=== PATIENT | male | born 1950 | race Caucasian/White ===

== ENCOUNTER → 2016-09-23 | Day surgery (SDC) | payer MEDICARE, OTHER ==
[~2016-09-23] MED LIST: 1-ME1LIQ PO; AMIT25; ASPI81CH3 PO; CALA120T PO; LACTATED RINGER'S 1,000 ML BAG IV ONE; LIPI20TA PO; LISI-587 PO; METO100 PO; NEUR600T PO; ONDA4TAB7 PO; PROPOFOL 200 MG/20 ML AMP IV ONE; TAMS0.4C4 PO/GT; ULOR80TA2 PO; ZOLP10TA3 PO
== END | disposition home or self-care (01) ==
LOC: ESDC 07:02
PROVIDERS: ATTEND Surgery
DX: R11.0 Nausea (principal)
CPT/HCPCS: 00740; 43239; 88305; 88312; J3010; J7120

== ENCOUNTER 2017-03-08 14:58 | Inpatient (IN) | payer MEDICARE, OTHER ==
[~2017-03-08] VITALS: Ht 157.5 cm; Wt 146.0 kg
[~2017-03-08 14:58] MED LIST changes: -1-ME1LIQ PO; +AMBI10TA PO; -AMIT25; +AMIT25TA9 PO; -ASPI81CH3 PO; +ATOR20TA15 PO; -CALA120T PO; +GABA600T PO; -LACTATED RINGER'S 1,000 ML BAG IV ONE; -LIPI20TA PO; -LISI-587 PO; +LISI20TA3 PO; -METO100 PO; +METO100T PO; -NEUR600T PO; -ONDA4TAB7 PO; -PROPOFOL 200 MG/20 ML AMP IV ONE; +TAMS0.4C4 PO; -TAMS0.4C4 PO/GT; +VERA120T3 PO; +ZOFR4TAB PO; -ZOLP10TA3 PO
[2017-03-09] MEDS ORDERED: LACTATED RINGER'S 1000 ML IV PRN (06:15)
[2017-03-09] MEDS ORDERED: APREPITANT 40 MG CAP PO SCH (06:15)
[2017-03-09] MEDS ORDERED: SODIUM CHLORID 0.9% 500 ML IV PRN (06:15)
[2017-03-09] MEDS ORDERED: INSULIN HUMAN REGULAR 1,000 UNITS/10 ML VIAL SQ PRN (06:15)
[2017-03-09] MEDS ORDERED: METOPROLOL TARTRATE 25 MG TAB PO PRN (06:15)
[2017-03-09] MEDS ORDERED: CHLORHEXIDINE GLUCONATE 2 % 1 PACK (2 CLOTHS) TOPICAL PRN (06:15)
[2017-03-09] MEDS ORDERED: ONDANSETRON HCL 4 MG/2 ML VIAL IV PUSH SCH (06:15)
[2017-03-09] MEDS ORDERED: POVIDONE IODINE 5% (ANTISEPSIS KIT) 4 APPLICATIONS EACH NARE PRN (06:15)
[2017-03-09] MEDS ORDERED: SCOPOLAMINE 1.5 MG PATCH T-DERMAL SCH (06:15)
[2017-03-09] MEDS ORDERED: ceFAZolin 2 GM PREMIX 50 ML IV SCH (06:15)
[2017-03-09] MEDS ORDERED: metroNIDAZOLE 500 MG INJ 100 ML IV SCH (06:15)
[2017-03-09] MEDS ORDERED: ACETAMINOPHEN 1000 MG/100 ML VIAL IV SCH (06:15)
[2017-03-09 06:29] VITALS: BP_SYST 143; BP_SYST 173; BP_DIAS 69; BP_DIAS 73; PULSE 63; RESP 20; TEMP 97.9; O2SAT 96
[2017-03-09] MEDS ORDERED: LISI20TA3 PO (07:03)
[2017-03-09] MEDS ORDERED: MS C30TA5 PO (07:03)
[2017-03-09] MEDS ORDERED: HYDR-3798 (07:03)
[2017-03-09] MEDS ORDERED: ULOR80TA2 (07:03)
[2017-03-09] MEDS ORDERED: AMLO10TA2 PO (07:03)
[2017-03-09] MEDS ORDERED: DULO1CAP2 PO (07:03)
[2017-03-09] MEDS ORDERED: VITA100036 PO (07:03)
[2017-03-09] MEDS ORDERED: FAMOTIDINE 20 MG/2 ML VIAL ONE (07:10)
[2017-03-09] MEDS ORDERED: MIDAZOLAM HCL 2 MG/2 ML VIAL ONE (07:10)
[2017-03-09] MEDS ORDERED: VASOPRESSIN INJ 20 UNITS/ML VIAL ONE (07:52)
[2017-03-09] MEDS ORDERED: BUPIVACAINE/EPINEPHRINE 0.5% PF 10 ML VIAL INFIL ONE (07:59)
[2017-03-09] MEDS ORDERED: METHYLENE BLUE 10 MG/ML VIAL NG ONE (08:12)
--- NOTE | 2017-03-09 10:41 | HHI.PR ---
Immediate Post Op Note Procedure Date: Mar 09, 2017 Pre Op Diagnosis: morbid obesity bmi 62, HTN, hypercholestremia, JONATHAN, RA Post Op Diagnosis: same Surgeon: Ridge Cantrell MD Seafood Packer(s): Dr. Diego Procedure: lap RYGB Findings: no leak on methylene blue test Complications: none Specimen(s) removed: none Estimated blood loss: 25cc Anesthesia: General Drains: None IVF (1700) Patient to: PACU Patient Condition: Good Ridge Cantrell MD Mar 09, 2017 10:41
[2017-03-09] MEDS ORDERED: ENOXAPARIN SODIUM 40 MG/0.4 ML SYRINGE SQ SCH (10:45)
[2017-03-09] MEDS ORDERED: Post-op Orders (for Pharmacy) MISC OTHER ONE (10:45)
[2017-03-09] MEDS ORDERED: ONDANSETRON HCL 4 MG/2 ML VIAL IV PRN (10:45)
[2017-03-09] MEDS ORDERED: diphenhydrAMINE HCL ELIXIR 12.5 MG/5 ML CUP PO PRN (10:45)
[2017-03-09] MEDS ORDERED: ACETAMINOPHEN 325MG/HYDROcodone 7.5MG/15ML UDC PO PRN (10:45)
[2017-03-09] MEDS ORDERED: HYDROmorphone HCL 2 MG TAB PO PRN (10:45)
[2017-03-09] MEDS ORDERED: diphenhydrAMINE HCL 50 MG/ML VIAL IV PRN (10:45)
[2017-03-09] MEDS ORDERED: ENALAPRILAT 1.25 MG/ML VIAL IV PUSH PRN (10:45)
[2017-03-09] MEDS ORDERED: SODIUM CHLORIDE 0.9% FLUSH 10 ML FLUSH IV FLUSH PRN (10:45)
[2017-03-09] MEDS ORDERED: DO NOT ADM ANY ANTICOAGULANT DRUGS PRN (10:55)
[2017-03-09] MEDS ORDERED: fentaNYL CITRATE 250 MCG/5 ML AMP ONE (10:59)
[2017-03-09] MEDS ORDERED: *HYDROmorphone PF 1 MG VIAL PERIprocedural Use ONLY ONE ×2 (11:07→11:27)
[2017-03-09] MEDS ORDERED: ePHEDrine/NS 25 MG/5 ML SYR IV ONE (11:17)
[2017-03-09] MEDS ORDERED: PROPOFOL 200 MG/20 ML AMP IV ONE (11:17)
[2017-03-09] MEDS ORDERED: PHENYLEPH/NS 1000 MCG/10 ML SYR IV ONE (11:18)
[2017-03-09] MEDS ORDERED: LACTATED RINGER'S 1000 ML INJ 1,000 ML IV ONE (11:18)
[2017-03-09] MEDS ORDERED: ONDANSETRON HCL 4 MG/2 ML VIAL IV PUSH ONE (11:18)
[2017-03-09] MEDS ORDERED: NEOSTIGMINE 3 MG/3 ML SYR IV ONE (11:18)
[2017-03-09] MEDS: D5-1/2 NS + KCL 20 MEQ INJ 1,000 ML IV SCH ×2 (11:30→20:49)
[2017-03-09] MEDS: PANTOPRAZOLE SOD 40 MG DELAYED RELEASE TAB PO SCH (12:00)
[2017-03-09] MEDS: METOCLOPRAMIDE HCL 10 MG/2 ML VIAL IV PUSH SCH ×2 (12:10→15:26)
[2017-03-09] MEDS: RESP: ALBUTEROL 2.5 MG/3 ML NEB (SCH) INH (12:10)
[2017-03-09] MEDS ORDERED: NALOXONE HCL 0.4 MG/ML AMP IV PRN (12:30)
[2017-03-09 14:00] VITALS: BP 128/60; PULSE 77; RESP 20; TEMP 96.2; O2SAT 92
[2017-03-09] MEDS: PCA - TOTAL MG DILAUDID DELIVERED PER SHIFT SCH ×2 (14:00→22:00)
[2017-03-09] MEDS: ENOXAPARIN SODIUM 40 MG/0.4 ML SYRINGE SQ SCH (15:26)
[2017-03-09] MEDS: metroNIDAZOLE 500 MG INJ 100 ML IV SCH ×2 (15:28→22:34)
[2017-03-09] MEDS: HYDROmorphone HCL PCA 6 MG/30 ML IV SCH (15:35)
[2017-03-09 16:00] VITALS: BP 169/75; PULSE 82; RESP 22; TEMP 96.5; O2SAT 94
[2017-03-09 20:11] VITALS: BP 153/70; PULSE 81; RESP 16; TEMP 97.3; O2SAT 92
[2017-03-09 20:45] VITALS: RESP 20
[2017-03-09] MEDS: SODIUM CHLORIDE 0.9% FLUSH 10 ML FLUSH IV FLUSH SCH (21:00)
[2017-03-10] VITALS (8 sets, daily range): BP systolic 145–183; BP diastolic 65–84; PULSE 74–94; RESP 18–21; TEMP 97.1–99.6; O2SAT 92–98
[2017-03-10] MEDS: METOCLOPRAMIDE HCL 10 MG/2 ML VIAL IV PUSH SCH ×2 (00:14→05:56)
[2017-03-10] MEDS: RESP: ALBUTEROL 2.5 MG/3 ML NEB (SCH) INH ×6 (00:33→21:24)
[2017-03-10] MEDS: D5-1/2 NS + KCL 20 MEQ INJ 1,000 ML IV SCH ×3 (03:37→20:00)
[2017-03-10] MEDS: metroNIDAZOLE 500 MG INJ 100 ML IV SCH (05:56)
[2017-03-10] MEDS: PCA - TOTAL MG DILAUDID DELIVERED PER SHIFT SCH (06:00)
[2017-03-10] MEDS: HYDROmorphone HCL PCA 6 MG/30 ML IV SCH (06:52)
[2017-03-10 08:17] LABS: AUTOMATED NEUTROPHIL # 7.6 TH/MM3 (1.8-7.7); BASOPHIL % 0.5 % (0.0-2.0); EOSINOPHIL % 0.3 % (0.0-4.0); HEMATOCRIT 40.2 % (39.0-51.0); HEMO FLAGS DIFF FINAL; LYMPH % 8.8 % (9.0-44.0); LYMPHOCYTE # 0.8 TH/MM3 (1.0-4.8); MEAN CELL VOLUME 87.3 FL (80.0-100.0); MEAN CORPUSCULAR HEMOGLOBIN 28.7 PG (27.0-34.0); MEAN CORPUSCULAR HGB CONC 32.9 % (32.0-36.0); MONO % 7.7 % (0.0-8.0); NEUT % 82.7 % (16.0-70.0); PLATELET COUNT 173 TH/MM3 (150-450); RED CELL DISTRIBUTION WIDTH 14.2 % (11.6-17.2); WHITE BLOOD COUNT 9.2 TH/MM3 (4.0-11.0)
[2017-03-10 08:45] LABS: BICARBONATE 31.1 MEQ/L (21.0-32.0); POTASSIUM 3.9 MEQ/L (3.5-5.1)
[2017-03-10] MEDS: SODIUM CHLORIDE 0.9% FLUSH 10 ML FLUSH IV FLUSH SCH ×2 (09:00→21:00)
[2017-03-10] MEDS: PANTOPRAZOLE SOD 40 MG DELAYED RELEASE TAB PO SCH (09:36)
[2017-03-10] MEDS ORDERED: METOCLOPRAMIDE HCL 10 MG/2 ML VIAL IV PUSH PRN (10:45)
[2017-03-10] MEDS ORDERED: fentaNYL 75 MCG/HR PATCH T-DERMAL SCH (12:00)
--- NOTE | 2017-03-10 12:28 | HHI.PR ---
Subjective Subjective Notes 66yo male POD#1 RNY. 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 Also has complaints of throat discomfort and occasional shortness of breath. Tolerating PO fluids. Objective Vitals/I&O Vital Signs Date Time Temp Pulse Resp B/P Pulse Ox O2 Delivery O2 Flow Rate FiO2 03/10/17 08:00 97.6 83 20 145/65 93 03/10/17 07:59 Nasal Cannula 3.00 Labs Laboratory Tests Test 03/10/17 07:05 White Blood Count 9.2 Red Blood Count 4.60 Hemoglobin 13.2 Hematocrit 40.2 Mean Corpuscular Volume 87.3 Mean Corpuscular Hemoglobin 28.7 Mean Corpuscular Hemoglobin 32.9 Concent Red Cell Distribution Width 14.2 Platelet Count 173 Mean Platelet Volume 7.4 Neutrophils (%) (Auto) 82.7 Lymphocytes (%) (Auto) 8.8 Monocytes (%) (Auto) 7.7 Eosinophils (%) (Auto) 0.3 Basophils (%) (Auto) 0.5 Neutrophils # (Auto) 7.6 Lymphocytes # (Auto) 0.8 Monocytes # (Auto) 0.7 Eosinophils # (Auto) 0.0 Basophils # (Auto) 0.0 CBC Comment DIFF FINAL Differential Comment Sodium Level 141 Potassium Level 3.9 Chloride Level 103 Carbon Dioxide Level 31.1 Anion Gap 7 Blood Urea Nitrogen 13 Creatinine 0.89 Estimat Glomerular Filtration 85 Rate Random Glucose 99 Calcium Level 7.9 Magnesium Level 2.0 Cardiovascular: Regular Lungs: Wheezes Abdomen: Post-op tenderness Extremities: Perfused Wound Wound : Wound Location: Abdomen Appearance: Clean & Dry A/P Assessment and Plan D/C WORLD LANGUAGE TEACHER and try Fentanyl patch with oral pain meds for breakthrough pain. Pt does take a significant amount of pain medications at home. D/C rehman PT for eval and treat, assist with OOB to chair and transfer Continue to increase fluids as tolerated Nebs Q4 hours and EZ pap, Encourage frequent ambulation and use of IS Discharge Planning D/C home possibly tomorrow depending on hospital course Attending Statement as above pt seen at bedside took 3900 cc po fluids discussed with pt going slow and not drinking fast pt has no nausea, doing well PT for assistance pt is a resident of [facility]- will work to return pt, likely tomorrow Attestation The exam, history, and the medical decision-making described in the above note were completed with the assistance of the mid-level provider. I reviewed and agree with the findings presented. I attest that I had a [id number] encounter with the patient on the same day, and personally performed and documented my assessment and findings in the medical record. Mirian Albarran Mar 10, 2017 12:28 Ridge Cantrell MD Mar 15, 2017 11:03
[2017-03-10] MEDS ORDERED: BENZOCAINE-MENTHOL (SUGAR FREE) 15 MG-3.6 MG LOZENGE BUCCAL ONE (12:45)
[2017-03-10] MEDS: ENOXAPARIN SODIUM 40 MG/0.4 ML SYRINGE SQ SCH (13:48)
[2017-03-10] MEDS: ACETAMINOPHEN 325MG/HYDROcodone 7.5MG/15ML UDC PO PRN (15:35)
[2017-03-10] MEDS ORDERED: ZOLPIDEM TARTRATE 10 MG TAB PO PRN (19:30)
[2017-03-11] VITALS: BP 172/79; PULSE 91; RESP 20; TEMP 97.9; O2SAT 93
[2017-03-11 04:00] VITALS: BP 181/86; PULSE 110; RESP 20; TEMP 98.7; O2SAT 94
[2017-03-11] MEDS: RESP: ALBUTEROL 2.5 MG/3 ML NEB (SCH) INH ×3 (04:00→09:35)
[2017-03-11] MEDS: D5-1/2 NS + KCL 20 MEQ INJ 1,000 ML IV SCH ×3 (04:00→20:00)
[2017-03-11] MEDS ORDERED: VERAPAMIL HCL 120 MG TAB PO PRN (07:45)
[2017-03-11] MEDS: SODIUM CHLORIDE 0.9% FLUSH 10 ML FLUSH IV FLUSH SCH ×2 (09:00→21:16)
[2017-03-11 09:35] VITALS: O2SAT 93
[2017-03-11] MEDS: PANTOPRAZOLE SOD 40 MG DELAYED RELEASE TAB PO SCH (09:49)
[2017-03-11] MEDS: LISINOPRIL 20 MG TAB PO SCH (09:50)
[2017-03-11] MEDS: METOPROLOL TARTRATE 100 MG TAB PO SCH (09:50)
--- NOTE | 2017-03-11 12:17 | HHI.PR ---
Subjective Subjective Notes POD#2 RNY. Laying in bed, has not had PT work with him yet. Tolerating Po fluids , needs to be reminded to slow down. Pain controlled. No GI complaints, passing flatus. Shortness of breath better Objective Vitals/I&O Vital Signs Date Time Temp Pulse Resp B/P Pulse Ox O2 Delivery O2 Flow Rate FiO2 03/11/17 09:35 93 Nasal Cannula 2.00 03/11/17 04:00 98.7 110 20 181/86 Cardiovascular: Regular Lungs: Clear Abdomen: Post-op tenderness Extremities: Perfused Wound Wound : Wound Location: Abdomen Appearance: Clean & Dry A/P Assessment and Plan Ensure pt is OOB today Continue with slow PO intake Continue with use of IS Discharge Planning D/C home possibly today Attending Statement as above pt seen at bedside encourage reduced po, but needs adequate hydration d/c planning Attestation The exam, history, and the medical decision-making described in the above note were completed with the assistance of the mid-level provider. I reviewed and agree with the findings presented. I attest that I had a [id number] encounter with the patient on the same day, and personally performed and documented my assessment and findings in the medical record. Mirian Albarran Mar 11, 2017 12:17 Ridge Cantrell MD Mar 15, 2017 11:19
[2017-03-11] MEDS ORDERED: LISI-515 PO (15:24)
[2017-03-11] MEDS: ENOXAPARIN SODIUM 40 MG/0.4 ML SYRINGE SQ SCH (15:32)
[2017-03-11 15:59] VITALS: O2SAT 93
[2017-03-11] MEDS: ACETAMINOPHEN 325MG/HYDROcodone 7.5MG/15ML UDC PO PRN (18:28)
[2017-03-11 20:00] VITALS: BP 123/55; PULSE 114; RESP 22; TEMP 98; O2SAT 93
[2017-03-12] VITALS: BP 166/73; PULSE 91; RESP 22; TEMP 96.8; O2SAT 98
[2017-03-12] MEDS: D5-1/2 NS + KCL 20 MEQ INJ 1,000 ML IV SCH ×2 (04:00→12:00)
[2017-03-12 07:35] VITALS: O2SAT 94
[2017-03-12 08:00] VITALS: BP 149/68; PULSE 73; RESP 18; TEMP 97.8; O2SAT 94
[2017-03-12] MEDS: SODIUM CHLORIDE 0.9% FLUSH 10 ML FLUSH IV FLUSH SCH (09:00)
[2017-03-12] MEDS: METOPROLOL TARTRATE 100 MG TAB PO SCH (09:12)
[2017-03-12] MEDS: PANTOPRAZOLE SOD 40 MG DELAYED RELEASE TAB PO SCH (09:12)
[2017-03-12] MEDS: LISINOPRIL 20 MG TAB PO SCH (09:12)
--- NOTE | 2017-03-12 10:58 | MP ---
cc: CODY CANTRELL MD DATE OF SURGERY: 03/09/2017 PREOPERATIVE DIAGNOSIS: 1. Morbid obesity, BMI 62 2. Hypertension 3. Hypercholesteremia rheumatoid arthritis so obstructive sleep apnea. POSTOPERATIVE DIAGNOSIS 1. Morbid obesity, BMI 62 2. Hypertension 3. Hypercholesteremia rheumatoid arthritis so obstructive sleep apnea. PROCEDURE PERFORMED Laparoscopic Daniele-en-Y gastric bypass. SURGEON Dr. Cody Cantrell STRUCTURAL WORKER: Dr. Dylan Diego needed due to the complex laparoscopic procedure and Dr. Diego assisted with the camera control and retraction. ANESTHESIA GETA. IV FLUIDS 1700 cc ESTIMATED BLOOD LOSS: 15 cc COMPLICATIONS None. WOUND CLASSICATION: Wound classification clean, contaminated. DRAINS: None FINDINGS No leak on Methylene blue INDICATION The patient is a 66-year-old male who presented with multiple attempts at weight loss without success. The patient with morbid obesity and multiple comorbidities include hypertension, hypercholesteremia, rheumatoid arthritis and obstructive sleep apnea. Decision was made for operative intervention. Discussed with the patient in detail for laparoscopic gastric bypass. DETAILS OF PROCEDURE: The patient was taken to the surgical suite, placed in supine position. He was prepped and draped in usual sterile fashion after induction of general trache anesthesia. Brief time-out done stating correct patient, procedure surgical site, we were all in agreement for this. Attention directed to the superior umbilicus. A 0.18 cm distal to the xyphoid midline was injected local anesthetic. Incision made for five OptiVu port done under direct visualization. The port into the Abdomen, the abdomen was insufflated to 50 mm pneumoperitoneum. Several other ports placed under direct vision 5 mm right upper quadrant liver retractor followed by a 12 mm right lower quadrant port. A 5 mm left upper quadrant port and 5 mm left lower quadrant port were all placed. Next attention directed to the omentum. The omentum was lifted cephalad and split from hepatic flexure to transverse and then up splitting omentum in half with Harmonic scalpel. This was done to create a path for the Roulen. Next the ligament Treitz was identified and the bowel walked 40 cm distally the small bowel was divided with an Endo-THANG stapler with seam guard. Next the clip was placed in the distal segment was brought a distance of a generous 100 cm, enterotomies were created in this area to create the jejunojejunostomy and the biliopancreatic limb and Roulen in side to side stapled anastomosis. The silk suture used and tacked to approximate the excess tissue and facilitate flow through the jejunojejunostomy. Clips placed at the staple line to obtain hemostasis. Once we were finished with that and the patient had been placed in reverse Trendelenburg and air planed to the right, a Sujatha flex retractor was placed to retract the left lobe of the liver. The angle of his was taken down with harmonic scalpel bluntly. The GE junction was identified in the lesser curvature above the nerve of bladder CA point distally to the GE junction to create her gastric pouch, it was identified. A window was made posteriorly into the lesser sac bluntly. The stomach was then transected horizontally using Endo-THANG blue load stapler. Several additional firings were done directed toward the angle of his, to complete the pouch. Prior to this confirmation of removal of any NG tube sure an esophageal probes were done and there were noted. Next the gastrotomy was created and pouch enterotomy was also created in the Daniele limb and a gastrojejunostomy was stapled to 1/2 cm. 2-0 Polysorb was used to reinforce approximate and close enterotomy making Faroese OG tube was placed across the anastomosis continue 06/29 of the 2-0 Polysorb's and tied to create a single initial layer. This was decibel nine point we would out evidence of leaking. A second layer was run to create a double layer and stones gastrojejunostomy. Next the seal was of placed over the gastrojejunostomy, jejunojejunostomy and staple lines. Hemostasis was identified. Next the defect in the intraoral potential hernias were closed using a nonabsorbable 2-0 suture. Following this pneumoperitoneum was removed all. The ports were removed under direct visualization. The to right lower left lower quadrant ports were closed with 0 Vicryl suture and a suture passer. Local injected at all port sites dimpled pneumoperitoneum ports removed. Subcuticular sutures including 4-0 Monocryl was done to all port sites. Sterile dressings then placed. The patient tolerated procedure well. There is no intraoperative complication. The patient was extubated, taken to the PACU. MD LILIA Huang/zafar /5:59 PM /10:24 AM
[2017-03-12] MEDS ORDERED: MS C30TA5 PO (11:04)
[2017-03-12] MEDS ORDERED: AMBI10TA PO (11:05)
[2017-03-12 12:00] VITALS: BP 144/69; PULSE 82; RESP 17; TEMP 96.6; O2SAT 95
[2017-03-13] MEDS ORDERED: REMOVE OLD DURAGESIC (FENTANYL) PATCH T-DERMAL SCH (12:00)
--- NOTE | 2017-03-15 10:02 | HHI.DS ---
Discharge Summary Admission Date Mar 09, 2017 at 05:27 Discharge Date: Mar 12, 2017 Admitting Diagnosis Morbid Obesity Procedures Laparscopic Daniele-en-Y Brief History 66yo male with morbid obesity and multiple comorbidities presented for elective gastric bypass PE at Discharge Cardiac: RRR Lungs: clear to auscultation Abdomen: mild post-op tenderness, denies any other GI complaints Extremities: perfused Hospital Course The procedure was performed without complication and was sent back to [facility] where he resides Pt Condition on Discharge: Stable Discharge Disposition: Discharge to SNF Discharge Instructions DIET: Follow Instructions for: Bariatric Surgery Diet Activities you can perform: Shower Only-No Bath Activities to Avoid: Strenuous Activity New Medications: Lisinopril (Lisinopril) 20 Mg Tab 20 MG PO DAILY Blood Pressure Management #30 Ref 3 TAB Continued Medications: Amlodipine (Amlodipine) 10 Mg Tab 10 MG PO DAILY Blood Pressure Management #30 Ref 0 TAB Atorvastatin (Atorvastatin) 20 Mg Tab 20 MG PO HS Cholesterol Management #30 Ref 0 TAB Cholecalciferol (Vitamin D3) 1,000 Unit Cap 1000 UNITS PO DAILY Nutritional Supplement #1 Ref [address] (Duloxetine DR) 30 Mg Capdr 30 MG PO DAILY #30 Ref 0 CAP Febuxostat (Uloric) 80 Mg Tab 80 MG PO DAILY Gabapentin (Gabapentin) 600 Mg Tab 600 MG PO TID #90 Ref 0 TAB Hydralazine HCl (Hydralazine HCl) 10 Mg Tablet Q8HR Metoprolol Tartrate (Metoprolol Tartrate) 100 Mg Tab 100 MG PO DAILY #30 Ref 0 TAB Morphine Sulfate (Ms Contin) 30 Mg Tablet.er 30 MG PO DAILY Pain Management Days 30 Ref 0 CAPLET (This prescription has been renewed) Ondansetron (Zofran) 4 Mg Tab 4 MG PO Q6HR PRN NAUSEA OR VOMITING Ref 0 TAB Tamsulosin (Tamsulosin) 0.4 Mg Cap 0.4 MG PO HS Manage Prostate Problems #30 Ref 0 CAP Verapamil (Verapamil) 120 Mg Tab 120 MG PO Q8H PRN ELEVATED B/P #90 Ref 0 TAB Zolpidem (Ambien) 10 Mg Tab 10 MG PO HS PRN INSOMNIA Days 30 Ref 0 TAB (This prescription has been renewed) Discontinued Medications: Febuxostat (Uloric) 80 Mg Tab 80 TAB DAILY Lisinopril-Hctz (Lisinopril-Hctz) 20-25 Mg Tab 1 TAB PO DAILY Blood Pressure Management #30 Ref 0 TAB Lisinopril-Hctz (Lisinopril-Hctz) 20-25 Mg Tab 1 TAB PO DAILY Blood Pressure Management #30 Ref 0 TAB Mirian Albarran Mar 15, 2017 10:02
== END 2017-03-12 12:42 | DRG 621 ==
LOC: HSDI 03-09 05:27 → N07B 03-09 13:37
PROVIDERS: ADMIT Surgery; ATTEND Surgery
PROC: 0D164ZA Bypass Stomach to Jejunum, Percutaneous Endoscopic Approach (ICD-10-PCS; principal; 2017-03-09 07:20)
DX: Z68.44 Body mass index [BMI] 60.0-69.9, adult (principal); E66.01 Morbid (severe) obesity due to excess calories; I10 Essential (primary) hypertension; M06.9 Rheumatoid arthritis, unspecified; G47.33 Obstructive sleep apnea (adult) (pediatric); E78.00 Pure hypercholesterolemia, unspecified
CPT/HCPCS: 80048; 83735; 85025; 94150; 94640; 94664; J0131; J0690; J1170; J1650; J2250; J2370; J2405; J2710; J2765; J3010; J3480; J7120; J7613; J8501

== ENCOUNTER 2017-03-30 05:08 | Observation (INO) | payer MEDICARE, OTHER ==
[~2017-03-30] VITALS: Ht 157.5 cm; Wt 134.0 kg
[2017-03-30] VITALS (9 sets, daily range): BP systolic 104–152; BP diastolic 51–89; PULSE 84–117; RESP 16–20; TEMP 96.8–99.6; O2SAT 9–98
[~2017-03-30 05:08] MED LIST changes: -AMIT25TA9 PO; +AMLO10TA2 PO; +DULO1CAP2 PO; +HYDR-3798; +LISI-515 PO; -LISI20TA3 PO; +MS C30TA5 PO; +VITA100036 PO
--- NOTE | 2017-03-30 05:20 | PD ---
HPI Chief Complaint: Abdominal Pain Time Seen by Provider: 05:12 Travel History International Travel<30 days: No Contact w/Intl Traveler<30days: No Traveled to known affect area: No History of Present Illness HPI 66-year-old male with laparoscopic Daniele-en-Y on 03/09/[address] Cantrell, brought in by ambulance from home for evaluation of epigastric abdominal pain and chest pain. Patient reports that the pain has been going on for 3 hours and has been progressively getting worse. He is unable to describe the pain, stating that it is just a pain. He reports that the pain is associated with nausea. He has not vomited. There are no modifying factors. He denies any known history of coronary artery disease. PFSH Past Medical History Hx Anticoagulant Therapy: Yes Arthritis: Yes Asthma: No Heart Rhythm Problems: No Cancer: Yes (MALIGNANT MELANOMA) Cardiovascular Problems: Yes (HTN, CHF) High Cholesterol: Yes Chest Pain: No Congestive Heart Failure: Yes COPD: No Cerebrovascular Accident: No Diminished Hearing: No Endocrine: No Genitourinary: Yes Hypertension: Yes Immune Disorder: No Kidney Stones: No Musculoskeletal: Yes Neurologic: Yes Psychiatric: Yes (depression) Reproductive: No Respiratory: Yes (sleep apnea) Migraines: No Renal Failure: Yes (STAGE TWO) Seizures: No Sleep Apnea: Yes Past Surgical History Abdominal Surgery: No Cardiac Surgery: No Ear Surgery: No Endocrine Surgery: Yes (tonsilectomy) Eye Surgery: No Genitourinary Surgery: No Gynecologic Surgery: No Oral Surgery: No Pacemaker: No Thoracic Surgery: No Tonsillectomy: Yes Other Surgery: Yes (rt arm melanoma) Social History Alcohol Use: No Tobacco Use: Yes Substance Use: No Allergies-Medications (Allergen,Severity, Reaction): Coded Allergies: No Known Allergies (Unverified , 03/30/17) Reported Meds & Prescriptions Reported Meds & Active Scripts Active Ambien (Zolpidem Tartrate) 10 Mg Tab 10 Mg PO HS PRN 30 Days Ms Contin (Morphine Sulfate) 30 Mg Tablet.er 30 Mg PO DAILY 30 Days Lisinopril 20 Mg Tab 20 Mg PO DAILY Reported Hydralazine HCl 10 Mg Tablet Q8HR Duloxetine DR (Duloxetine HCl) 30 Mg Capdr 30 Mg PO DAILY Vitamin D3 (Cholecalciferol) 1,000 Unit Cap 1,000 Units PO DAILY Amlodipine (Amlodipine Besylate) 10 Mg Tab 10 Mg PO DAILY Uloric (Febuxostat) 80 Mg Tab 80 Mg PO DAILY Gabapentin 600 Mg Tab 600 Mg PO TID Metoprolol Tartrate 100 Mg Tab 100 Mg PO DAILY Zofran (Ondansetron HCl) 4 Mg Tab 4 Mg PO Q6HR PRN Tamsulosin (Tamsulosin HCl) 0.4 Mg Cap 0.4 Mg PO HS Review of Systems Except as stated in HPI: all other systems reviewed are Neg Physical Exam Narrative GENERAL: Well-developed, well-nourished, morbidly obese, no apparent distress. SKIN: Focused skin assessment warm/dry. No rash. No pallor. No diaphoresis. HEAD: Atraumatic. Normocephalic. EYES: Pupils equal and round. No scleral icterus. No injection or drainage. ENT: Mucous membranes pink and moist. NECK: Trachea midline. No JVD. CARDIOVASCULAR: Regular rate and rhythm. No murmur appreciated. RESPIRATORY: No accessory muscle use. Clear to auscultation. Breath sounds equal bilaterally. GASTROINTESTINAL: Abdomen round, soft, nondistended. Mild epigastric tenderness without peritoneal signs. Rest of abdomen is soft and nontender. Normal bowel sounds. Incisions from laparoscopic procedure healing well without warmth, erythema, purulence, or induration. MUSCULOSKELETAL: No obvious deformities. No clubbing. No cyanosis. No edema. NEUROLOGICAL: Awake and alert. No obvious cranial nerve deficits. Motor grossly within normal limits. Normal speech. PSYCHIATRIC: Appropriate mood and affect; insight and judgment normal. Data Data Last Documented VS Vital Signs Date Time Temp Pulse Resp B/P Pulse Ox O2 Delivery O2 Flow Rate FiO2 03/30/17 06:37 94 20 122/60 98 Nasal Cannula 3 03/30/17 05:19 96.8 Orders Electrocardiogram (03/30/17 05:20) Ckmb (Isoenzyme) Profile (03/30/17 05:20) Complete Blood Count With Diff (03/30/17 05:20) Comprehensive Metabolic Panel (03/30/17 05:20) Magnesium (Mg) (03/30/17 05:20) Prothrombin Time / Inr (Pt) (03/30/17 05:20) Act Partial Throm Time (Ptt) (03/30/17 05:20) Troponin I (03/30/17 05:20) Lipase (03/30/17 05:20) Chest, Single Ap (03/30/17 05:20) Ecg Monitoring (03/30/17 05:20) Iv Access Insert/Monitor (03/30/17 05:20) Oximetry (03/30/17 05:20) Sodium Chloride 0.9% Flush (Ns Flush) (03/30/17 05:30) Ct Abd/Pel W Iv Contrast(Rout) (03/30/17 05:20) Hydromorphone Pf Inj (Dilaudid Pf Inj) (03/30/17 05:30) Ondansetron Inj (Zofran Inj) (03/30/17 05:30) Iohexol 350 Inj (Omnipaque 350 Inj) (03/30/17 06:39) Piperacil-Tazo 4.5 Gm Premix (Zosyn 4.5 (03/30/17 07:15) Us Abdomen Gallbladder (03/30/17 ) Labs Laboratory Tests Test 03/30/17 05:15 White Blood Count 8.5 TH/MM3 Red Blood Count 4.48 MIL/MM3 Hemoglobin 12.9 GM/DL Hematocrit 38.0 % Mean Corpuscular Volume 84.9 FL Mean Corpuscular Hemoglobin 28.9 PG Mean Corpuscular Hemoglobin 34.1 % Concent Red Cell Distribution Width 13.7 % Platelet Count 228 TH/MM3 Mean Platelet Volume 8.4 FL Neutrophils (%) (Auto) 80.3 % Lymphocytes (%) (Auto) 10.4 % Monocytes (%) (Auto) 7.1 % Eosinophils (%) (Auto) 1.3 % Basophils (%) (Auto) 0.9 % Neutrophils # (Auto) 6.8 TH/MM3 Lymphocytes # (Auto) 0.9 TH/MM3 Monocytes # (Auto) 0.6 TH/MM3 Eosinophils # (Auto) 0.1 TH/MM3 Basophils # (Auto) 0.1 TH/MM3 CBC Comment DIFF FINAL Differential Comment Prothrombin Time 11.8 SEC Prothromb Time International 1.1 RATIO Ratio Activated Partial 32.1 SEC Thromboplast Time Sodium Level 140 MEQ/L Potassium Level 3.8 MEQ/L Chloride Level 104 MEQ/L Carbon Dioxide Level 30.0 MEQ/L Anion Gap 6 MEQ/L Blood Urea Nitrogen 23 MG/DL Creatinine 1.01 MG/DL Estimat Glomerular Filtration 74 ML/MIN Rate Random Glucose 142 MG/DL Calcium Level 8.4 MG/DL Magnesium Level 2.0 MG/DL Total Bilirubin 0.8 MG/DL Aspartate Amino Transf 101 U/L (AST/SGOT) Alanine Aminotransferase 61 U/L (ALT/SGPT) Alkaline Phosphatase 128 U/L Total Creatine Kinase 37 U/L Troponin I LESS THAN 0.02 NG/ML Total Protein 7.1 GM/DL Albumin 3.1 GM/DL Lipase 181 U/L MDM Medical Decision Making Medical Screen Exam Complete: Yes Emergency Medical Condition: Yes Medical Record Reviewed: Yes Interpretation(s) EKG: Sinus, rate 76, leftward axis, normal intervals, Q waves in inferior leads , no ST segment or T-wave abnormalities Differential Diagnosis ACS, Internal hernia, Pancreatitis, Gastritis, peptic ulcer disease, pneumonia, pericarditis, PE Narrative Course Vital signs show heart rate 86, blood pressure 126/73, pulse ox 94% on 3 L nasal cannula, axillary temp of 96.8F. CBC shows WBC 8.5, hemoglobin 12.9, hematocrit 38, platelets 228, neutrophils 80.3%. CMP is unremarkable. Lipase is 181. Cardiac enzymes are negative. Chest x-ray: Basilar scarring. CT abdomen/pelvis: CONCLUSION: 1. Abnormal gallbladder with wall thickening and induration of the pericholecystic fat characteristics of cholecystitis. 2. Atherosclerosis. 3. Diverticulosis. 4. Fat-containing umbilical hernia. Case discussed with the patient's reactive surgeon Dr. Cantrell. Plan is to give the patient a dose of Zosyn here in the emergency department, ordered a right upper quadrant ultrasound, and admit the patient to Dr. Cantrell service for observation. He will discuss with the patient whether to proceed with cholecystectomy or to continue with antibiotics and consider cholecystectomy at a later date. The patient was made aware of all findings and a plan. He is amenable with this plan. Diagnosis Primary Impression: Cholecystitis Admitting Information Admitting Physician Requests: Observation Darrell Calix MD Mar 30, 2017 05:20
[2017-03-30] MEDS ORDERED: HYDROmorphone HCL PF 1 MG/ML VIAL IV PUSH ONE (05:30)
[2017-03-30] MEDS ORDERED: ONDANSETRON HCL 4 MG/2 ML VIAL IV PUSH ONE ×2 (05:30→12:15)
[2017-03-30] MEDS ORDERED: SODIUM CHLORIDE 0.9% FLUSH 10 ML FLUSH IVF PRN (05:30)
[2017-03-30 05:42] LABS: AUTOMATED NEUTROPHIL # 6.8 TH/MM3 (1.8-7.7); BASOPHIL # 0.1 TH/MM3 (0-0.2); BASOPHIL % 0.9 % (0.0-2.0); EOSINOPHIL # 0.1 TH/MM3 (0-0.4); EOSINOPHIL % 1.3 % (0.0-4.0); HEMO FLAGS DIFF FINAL; LYMPH % 10.4 % (9.0-44.0); LYMPHOCYTE # 0.9 TH/MM3 (1.0-4.8); MEAN CELL VOLUME 84.9 FL (80.0-100.0); MEAN CORPUSCULAR HEMOGLOBIN 28.9 PG (27.0-34.0); MEAN CORPUSCULAR HGB CONC 34.1 % (32.0-36.0); MONO % 7.1 % (0.0-8.0); NEUT % 80.3 % (16.0-70.0); PLATELET COUNT 228 TH/MM3 (150-450); RED BLOOD COUNT 4.48 MIL/MM3 (4.50-5.90); RED CELL DISTRIBUTION WIDTH 13.7 % (11.6-17.2); WHITE BLOOD COUNT 8.5 TH/MM3 (4.0-11.0)
[2017-03-30 05:53] LABS: APTT (PATIENT) 32.1 SEC (24.3-30.1); INTERNATIONAL NORMALIZED RATIO 1.1 RATIO; PROTHROMBIN TIME - PATIENT 11.8 SEC (9.8-11.6)
[2017-03-30 05:59] LABS: ALT (GPT) 61 U/L (12-78); ANION GAP 6 MEQ/L (5-15); AST (GOT) 101 U/L (15-37); BLOOD UREA NITROGEN 23 MG/DL (7-18); CHLORIDE 104 MEQ/L (98-107); GLOMERULAR FILTRATION RATE 74 ML/MIN (>89); POTASSIUM 3.8 MEQ/L (3.5-5.1); SODIUM (NA) 140 MEQ/L (136-145)
[2017-03-30 06:03] LABS: ALKALINE PHOSPHATASE 128 U/L (45-117); TOTAL BILIRUBIN ADULT 0.8 MG/DL (0.2-1.0)
[2017-03-30] MEDS ORDERED: PROT40TA PO (06:04)
[2017-03-30] MEDS ORDERED: MORP1TAB24 PO ×2 (06:04)
[2017-03-30] MEDS ORDERED: ZOFR4TAB3 SL (06:04)
[2017-03-30 06:07] LABS: CREATINE KINASE 37 U/L (39-308)
--- NOTE | 2017-03-30 06:10 | RADRPT ---
EXAM DATE/TIME: 03/30/2017 05:41 [facility] COMPARISON: CHEST SINGLE AP, April 22, 2016, 16:34. INDICATIONS : Shortness of breath. MEDICAL HISTORY : Hypertension. Congestive heart failure. SURGICAL HISTORY : None. ENCOUNTER: Initial ACUITY: 1 day PAIN SCORE: 0/10 LOCATION: Bilateral chest FINDINGS: There is linear scarring at the left lung base. Cardiomegaly. Minimal linear scarring right lung base . No consolidation or effusion. Osseous structures are intact with degenerative changes. CONCLUSION: Basilar scarring. Brett Montez MD on March 30, 2017 at 6:08 Board Certified Radiologist. This report was verified electronically.
[2017-03-30] MEDS ORDERED: IOHEXOL 350 MG/ML 10 ML VIAL (for RAD DIAG) IV ONE (06:39)
--- NOTE | 2017-03-30 06:45 | RADRPT ---
EXAM DATE/TIME: 03/30/2017 06:22 [facility] COMPARISON: US KIDNEY/RENAL/BLADDER, September 28, 2015, 16:21. INDICATIONS : Epigastric abdominal pain and nausea. IV CONTRAST: 100 cc Omnipaque 350 (iohexol) IV ORAL CONTRAST: No oral contrast ingested. RADIATION DOSE: 34.76 CTDIvol (mGy) ; Patient body habitus MEDICAL HISTORY : Hypertension. Congestive heart failure. Renal failure. SURGICAL HISTORY : Gastric bypass. ENCOUNTER: Initial ACUITY: 1 day PAIN SCALE: 7/10 LOCATION: Epigastric. TECHNIQUE: Volumetric scanning of the abdomen and pelvis was performed. Using automated exposure control and ad justment of the mA and/or kV according to patient size, radiation dose was kept as low as reasonably achievable to obtain optimal diagnostic quality images. DICOM format image data is available electro nically for review and comparison. FINDINGS: There is coronary artery calcification. The gallbladder is distended and there is gallbladder wall th ickening and induration of the pericholecystic fat concerning for cholecystitis. The patient is statu s post gastric bypass procedure. The spleen, pancreas, adrenal glands, kidneys are unremarkable. Athe rosclerotic calcification of the aorta and iliac vasculature. Prostate calcifications are noted. Urin wilberto bladder unremarkable. There is diverticulosis of the sigmoid colon and descending colon without e vidence of diverticulitis. There is diastasis of the rectus abdominis musculature and a fat containin g hernia. The appendix is normal. There are atelectatic changes and patchy infiltrate at the bases. D egenerative changes of the spine are noted. CONCLUSION: 1. Abnormal gallbladder with wall thickening and induration of the pericholecystic fat characteristic s of cholecystitis. 2. Atherosclerosis. 3. Diverticulosis. 4. Fat-containing umbilical hernia. Brett Montez MD on March 30, 2017 at 6:41 Board Certified Radiologist. This report was verified electronically.
[2017-03-30] MEDS ORDERED: SODIUM CHLOR 0.9% 1000 ML INJ 1,000 ML IV SCH (07:08)
[2017-03-30] MEDS ORDERED: PIPERACIL-TAZO 4.5 GM PREMIX 100 ML IV ONE (07:15)
--- NOTE | 2017-03-30 08:16 | EKG ---
Date Performed: 03/30/2017 Time Performed: 05:28:02 PTAGE: 66 years EKG: Sinus rhythm INFERIOR MYOCARDIAL INFARCTION ABNORMAL ECG PREVIOUS TRACING : 04/22/2016 16.36 DOCTOR: Yogesh Bernstein Interpretating Date/Time 03/30/2017 08:15:25
[2017-03-30] MEDS ORDERED: diphenhydrAMINE HCL ELIXIR 12.5 MG/5 ML CUP PO PRN (09:45)
[2017-03-30] MEDS ORDERED: ONDANSETRON HCL 4 MG/2 ML VIAL IV PRN (09:45)
[2017-03-30] MEDS ORDERED: diphenhydrAMINE HCL 50 MG/ML VIAL IV PRN (09:45)
[2017-03-30] MEDS ORDERED: ENALAPRILAT 1.25 MG/ML VIAL IV PUSH PRN (09:45)
[2017-03-30] MEDS ORDERED: SODIUM CHLORIDE 0.9% FLUSH 10 ML FLUSH PRN (09:45)
--- NOTE | 2017-03-30 09:50 | RADRPT ---
EXAM DATE/TIME: 03/30/2017 08:08 [facility] COMPARISON: No previous studies available for comparison. INDICATIONS : Right upper quadrant pain. MEDICAL HISTORY : Congestive heart failure. Hypercholesterolemia. Arthritis. HTN. Sleep apnea. Dyspnea. Stage II renal failure. Malignant melanoma. Rhabdomyolysis. Anticoagulant therapy. SURGICAL HISTORY : Tonsillectomy. 15 day post gastric bypass. Bypass. Right shoulder surgery. Maignant melanoma rem oval. ENCOUNTER: Initial ACUITY: 1 day PAIN SCORE: 7/10 LOCATION: Right upper quadrant MEASUREMENTS: LIVER: 19.2 cm length COMMON DUCT: 9 mm RIGHT KIDNEY: 10.1 x 5.4 x 5.1 cm FINDINGS: LIVER: Normal echotexture without focal lesion or ductal dilatation. COMMON DUCT: Mildly prominent at 9 mm GALLBLADDER: Sludge in gallbladder neck PANCREAS: The visualized portions are within normal limits. RIGHT KIDNEY: No evidence of hydronephrosis, stone, or mass. CONCLUSION: Mildly dilated common bile duct. Gallbladder sludge. Baldomero Collins MD on March 30, 2017 at 9:46 Board Certified Radiologist. This report was verified electronically.
[2017-03-30] MEDS ORDERED: ePHEDrine/NS 25 MG/5 ML SYR IV ONE (12:14)
[2017-03-30] MEDS ORDERED: PROPOFOL 200 MG/20 ML AMP IV ONE (12:14)
[2017-03-30] MEDS ORDERED: NEOSTIGMINE 3 MG/3 ML SYR IV ONE (12:15)
[2017-03-30] MEDS ORDERED: LACTATED RINGER'S 1000 ML INJ 1,000 ML IV ONE (12:15)
[2017-03-30] MEDS ORDERED: PHENYLEPH/NS 1000 MCG/10 ML SYR IV ONE (12:15)
[2017-03-30] MEDS ORDERED: BUPIVACAINE/EPINEPHRINE 0.5% PF 10 ML VIAL INFIL ONE (12:21)
[2017-03-30] MEDS: PIPERACIL-TAZO 3.375 GM PREMIX 50 ML IV SCH ×3 (12:52→21:35)
--- NOTE | 2017-03-30 13:29 | HHI.PR ---
Immediate Post Op Note Procedure Date: Mar 30, 2017 Pre Op Diagnosis: acute cholecystitis with gallbladder sludge Post Op Diagnosis: same Surgeon: Ridge Cantrell MD Tea Taster(s): see or sheet Procedure: lap cricket Findings: distended gallbladder Complications: none Specimen(s) removed: gallbladder Estimated blood loss: 5cc Anesthesia: General Drains: None Patient to: PACU Patient Condition: Good Ridge Cantrell MD Mar 30, 2017 13:29
[2017-03-30] MEDS ORDERED: DO NOT ADM ANY ANTICOAGULANT DRUGS PRN (13:34)
[2017-03-30] MEDS: D5-1/2 NS + KCL 20 MEQ INJ 1,000 ML IV SCH ×2 (14:00→21:37)
[2017-03-30] MEDS ORDERED: MORPHINE SULFATE 4 MG/ML INJ IV PUSH PRN (15:00)
[2017-03-30] MEDS ORDERED: *RESP: ALBUTEROL 2.5 MG/3 ML NEB (PRN) PERIprocedural Use ONLY NEB ONE (15:15)
[2017-03-30] MEDS: METOCLOPRAMIDE HCL 10 MG/2 ML VIAL IV PUSH SCH ×2 (17:00→21:36)
[2017-03-30] MEDS: SODIUM CHLORIDE 0.9% FLUSH 10 ML FLUSH IV FLUSH SCH (21:00)
--- NOTE | 2017-03-30 21:18 | MH ---
cc: CODY ARCEO MD DATE OF ADMISSION 03/30/2017 CHIEF COMPLAINT Abdominal pain. HISTORY OF PRESENT ILLNESS The patient is a 66-year-old male with morbid obesity, multiple medical problems, status post history of Daniele-en-Y gastric bypass 03/09/2017. The patient came to the emergency department due to the epigastric and chest pain. He also states pain started on the right side and got progressively worse. He states the pain was initially a 9/10 and currently is 5/10. It is sharp, radiates to the right side, worse with movement, better with lying still. He came for further evaluation including CT scan showing a thickened edematous distended gallbladder. Ultrasound showed further confirming this with gallstones, sludge and acute cholecystitis. The patient does note he had a previous history of cholecystitis 20 years ago with some right upper quadrant and epigastric pain, that was resolved on its own. Also, 5 years ago had a similar incident with significant abdominal pain again treated medically. PAST MEDICAL HISTORY Arthritis, asthma, malignant melanoma, hypertension, CHF, cholesterol. Depression, sleep apnea, renal failure. PAST SURGICAL HISTORY Daniele-en-Y gastric bypass, tonsillectomy, excision of right arm melanoma. SOCIAL HISTORY Denies EtOH, IVDA. Occasional smoking. MEDICATIONS See EMR. ALLERGIES NO KNOWN DRUG ALLERGIES. Family hx non contributory REVIEW OF SYSTEMS GENERAL: Denies fevers or chills. HEENT: Denies eye pain, ear pain. NECK: Denies swelling or pain. LUNGS: Denies cough or wheeze. HEART: Denies palpitations. Complains of chest pain. ABDOMEN: Complained of abdominal pain. Denies vomiting. Complained of nausea. : Denies dysuria, hematuria. ENDOCRINE: Denies polyuria, polydipsia. MUSCULOSKELETAL: Arthralgia. Denies myalgia. NEUROLOGIC: Denies numbness or tingling. PHYSICAL EXAMINATION GENERAL: The patient in no acute distress. VITAL SIGNS: Temperature 96.8, pulse 94, respiration 20, blood pressure 122/60, saturation 98% on room air. HEENT: PERRLA, pupils equal, round, reactive. Normocephalic, atraumatic. NECK: Supple. Trachea midline. LUNGS: Clear to auscultation bilateral expansion. HEART: S1-S2, regular rhythm. ABDOMEN: Soft. Positive tenderness to palpation right upper quadrant and epigastrium. Well-healed surgical incisions. EXTREMITIES: Warm, well-perfused, in wheelchair. BACK: Normal curvature. PSYCH: Good insight, good judgment. NEUROLOGIC: GCS of 15. Motor gross within normal limits. Normal speech. LABORATORY AND DIAGNOSTIC DATA WBC 8.5, hemoglobin 12.9, hematocrit 38, platelets 228, sodium of 140, potassium 3.8, chloride 104. BUN 23, creatinine 1, AST 101, ALT 61, alkaline phosphatase 128, lipase 181, INR 1.1. CT imaging reviewed by myself. Abnormal gallbladder. Gallbladder wall thickening. Induration and pericholecystic fat. Cholecystitis, diverticulosis. Gallbladder ultrasound, thickened gallbladder wall. Sludge and stones consistent with acute cholecystitis. ASSESSMENT The patient is a 66-year-old male, history of morbid obesity, multiple medical issues, status post gastric bypass, was doing relatively well, developed acute onset of abdominal pain consistent with concern for acute cholecystitis. PLAN After full clinical, radiologic, laboratory workup the patient above-named issues including acute cholecystitis with cholelithiasis. Discussed with the patient regarding IV fluids, pain control, n.p.o., antibiotics. Will take the patient to the operating room for laparoscopic cholecystectomy. Discussed with the patient in detail, states understanding, agreed and would like to proceed. MD LILIA Huang/BEN /8:31 PM /9:01 PM BERTRAM
[2017-03-30] MEDS: ENOXAPARIN SODIUM 40 MG/0.4 ML SYRINGE SQ SCH (21:35)
[2017-03-31] VITALS (8 sets, daily range): BP systolic 123–167; BP diastolic 53–73; PULSE 86–104; RESP 16–19; TEMP 97.6–100.4; O2SAT 91–95
[2017-03-31] MEDS: PIPERACIL-TAZO 3.375 GM PREMIX 50 ML IV SCH ×4 (01:41→20:00)
[2017-03-31] MEDS: METOCLOPRAMIDE HCL 10 MG/2 ML VIAL IV PUSH SCH (04:37)
[2017-03-31] MEDS: D5-1/2 NS + KCL 20 MEQ INJ 1,000 ML IV SCH ×3 (05:18→19:00)
[2017-03-31] MEDS: PANTOPRAZOLE SOD 40 MG DELAYED RELEASE TAB PO SCH (08:40)
[2017-03-31] MEDS: SODIUM CHLORIDE 0.9% FLUSH 10 ML FLUSH IV FLUSH SCH ×2 (09:00→21:00)
[2017-03-31] MEDS ORDERED: METOCLOPRAMIDE HCL 10 MG/2 ML VIAL IV PUSH PRN (09:45)
[2017-03-31] MEDS: ACETAMINOPHEN 325MG/HYDROcodone 7.5MG/15ML UDC PO PRN ×2 (14:33→23:56)
[2017-03-31] MEDS ORDERED: HYDR1SOL6 PO (15:25)
[2017-03-31] MEDS: ENOXAPARIN SODIUM 40 MG/0.4 ML SYRINGE SQ SCH (22:52)
[2017-04-01] VITALS: BP 141/66; PULSE 95; RESP 18; TEMP 99.6; O2SAT 96
[2017-04-01] MEDS: PIPERACIL-TAZO 3.375 GM PREMIX 50 ML IV SCH ×2 (02:00→08:00)
[2017-04-01] MEDS: D5-1/2 NS + KCL 20 MEQ INJ 1,000 ML IV SCH ×2 (03:00→09:03)
[2017-04-01 08:00] VITALS: BP 184/86; PULSE 92; RESP 17; TEMP 99.3; O2SAT 93
[2017-04-01] MEDS: PANTOPRAZOLE SOD 40 MG DELAYED RELEASE TAB PO SCH (08:57)
[2017-04-01] MEDS ORDERED: METOPROLOL TARTRATE 100 MG TAB PO SCH (09:00)
[2017-04-01] MEDS ORDERED: LISINOPRIL 20 MG TAB PO SCH (09:00)
[2017-04-01] MEDS: SODIUM CHLORIDE 0.9% FLUSH 10 ML FLUSH IV FLUSH SCH (09:02)
--- NOTE | 2017-04-01 10:38 | MP ---
cc: CODY CANTRELL MD DATE OF SURGERY 03/30/2017 PREOPERATIVE DIAGNOSIS Right upper quadrant abdominal pain, epigastric pain, acute cholecystitis, gallstones and sludge. POSTOPERATIVE DIAGNOSIS Right upper quadrant abdominal pain, epigastric pain, acute cholecystitis, gallstones and sludge. PROCEDURE PERFORMED Laparoscopic cholecystectomy SURGEON Dr. Cody Cantrell PERSONAL CHEF See OR sheet ANESTHESIA GETA IV FLUIDS See anesthesia sheet ESTIMATED BLOOD LOSS 5 cc DRAINS None COMPLICATIONS None WOUND CLASSIFICATION Clean, contaminated SPECIMEN Gallbladder FINDINGS8 Distended and an irritate and inflamed gallbladder. INDICATION The patient is 66-year-old male with a history of gastric bypass. Recently, the patient developed acute onset of epigastric and right-sided abdominal pain. The patient was seen in the emergency department including CT scan and a gallbladder ultrasound showing thickened gallbladder wall with sludge and possible stone. Therefore, decision was made for operative intervention including laparoscopic cholecystectomy. PROCEDURE IN DETAIL The patient was taken to the operating suite, placed in the supine position. He was prepped and draped in the usual sterile fashion after induction of general endotracheal anesthesia. A brief time-out done stating correct patient, procedure, and surgical site. We were all in agreement with this and attention was first directed to the previous incisional scar superior to the umbilicus. Local anesthetic injected. Veress needle placed intra-abdominal, placement confirmed with saline drop test. Abdomen insufflated to 50 mm pneumoperitoneum. Three other ports placed, one 12 mm epigastric followed by two 5 mm right subcostal ports. The patient placed in reverse Trendelenburg and airplaned to the left. The gallbladder fundus was grasped. There was noted be in some adhesions to the gallbladder. These were taken down with electro Bovie cautery. The gallbladder was very distended. Endo-needle used to decompress the gallbladder with removal of 95 cc of bilious material. The gallbladder grasped and retracted cephalad. The gallbladder, cystic duct, and cystic artery were dissected in the usual manner as the only structure on the gallbladder. The cystic duct was identified and two clips placed proximal and one distal and the cystic artery was identified and two clips placed proximal, and one distal. Endoshears were used to transect the cystic duct and cystic artery. The hook electrocautery was used to remove gallbladder from the gallbladder fossa. A small bleeding vessel of the gallbladder fossa was clipped with a 5 mm clip special order jeweler. The gallbladder was removed and placed in an EndoCatch bag. The gallbladder was removed from the epigastric port. Hemostasis was obtained with electro Bovie cautery. A small amounts of Reji was placed in the gallbladder fossa. Hemostasis was obtained. No evidence of biliary leaking. The abdomen was minimally explored without evidence of issue with the gastric bypass. The abdomen was then desufflated, ports were removed. A 0-Vicryl was placed in the fascial suture for the epigastric port. 4-[address] and a subcuticular suture. Mastisol and Steri-Strips were placed and sterile dressings. The patient tolerated the procedure well. No intraoperative complication. All lap and instrument counts were correct at the end of the procedure. The patient was extubated and taken to the PACU. MD LILIA Huang/JEAN /1:55 PM /10:28 AM
[2017-04-01 11:50] VITALS: O2SAT 92
[2017-04-01 12:00] VITALS: BP 147/71; PULSE 81; RESP 17; TEMP 98.8; O2SAT 91
== END 2017-04-01 13:48 ==
LOC: NEPC 05:08 → NEDA 07:08 → NEDH 10:52 → NEDA 10:54 → N07A 16:18
PROVIDERS: ADMIT Surgery; ATTEND Surgery
PROC: 0FT44ZZ Resection of Gallbladder, Percutaneous Endoscopic Approach (ICD-10-PCS; principal; 2017-03-30 11:52)
DX: K81.0 Acute cholecystitis (principal); K81.1 Chronic cholecystitis; I13.0 Hypertensive heart and chronic kidney disease with heart failure and stage 1 through stage 4 chronic kidney disease, or unspecified chronic kidney disease; N18.2 Chronic kidney disease, stage 2 (mild); I50.9 Heart failure, unspecified; G47.30 Sleep apnea, unspecified; E66.01 Morbid (severe) obesity due to excess calories; E78.5 Hyperlipidemia, unspecified; J45.909 Unspecified asthma, uncomplicated; M17.9 Osteoarthritis of knee, unspecified; M16.10 Unilateral primary osteoarthritis, unspecified hip; F32.9 Major depressive disorder, single episode, unspecified; F17.200 Nicotine dependence, unspecified, uncomplicated; Z85.820 Personal history of malignant melanoma of skin; Z68.43 Body mass index [BMI] 50.0-59.9, adult; Z79.899 Other long term (current) drug therapy; Z98.84 Bariatric surgery status
CPT/HCPCS: 00790; 47562; 71010; 74177; 76705; 80053; 82550; 83690; 83735; 84484; 85025; 85610; 85730; 88304; 93005; 94150; 94640; 94664; 96365; 96366; 96372; 96374; 96375; 96376; 99285; G0378; J1170; J1650; J2370; J2405; J2543; J2710; J2765; J3010; J3480; J7030; J7120; J7613; Q9967